=== PATIENT | female | born 2000 | race African-American/Black ===

== ENCOUNTER 2023-05-15 17:40 | Emergency (ER) | payer OTHER ==
[~2023-05-15] VITALS: Ht 167.6 cm; Wt 65.0 kg
[2023-05-15 17:47] VITALS: BP 118/78; PULSE 86; RESP 16; TEMP 98.4; O2SAT 100
== END 2023-05-15 18:37 ==
LOC: ER 17:40
DX: T14.8XXA Other injury of unspecified body region, initial encounter (principal); Y08.89XA Assault by other specified means, initial encounter; Y93.89 Activity, other specified; Y92.89 Other specified places as the place of occurrence of the external cause; Y99.8 Other external cause status
CPT/HCPCS: 99283

== ENCOUNTER 2024-06-30 01:37 | Emergency (ER) | payer BC, MEDICAID ==
[~2024-06-30] VITALS: Ht 165.1 cm; Wt 89.0 kg
[2024-06-30 01:57] VITALS: BP 121/73; PULSE 56; RESP 16; TEMP 37; O2SAT 98
== END 2024-06-30 04:31 | disposition left against medical advice (07) ==
LOC: ER 01:37
DX: R44.3 Hallucinations, unspecified (principal); F31.9 Bipolar disorder, unspecified
CPT/HCPCS: 99283